=== PATIENT | male | born 1955 | race African-American/Black ===

== ENCOUNTER 2020-09-11 09:31 | Emergency (ER) | payer OTHER, MEDICARE ==
[~2020-09-11] VITALS: Ht 182.9 cm; Wt 86.0 kg
[2020-09-11 09:40] VITALS: BP 172/107
[2020-09-11] MEDS ORDERED: CYCL5TAB PO (10:15)
[2020-09-11] MEDS ORDERED: AMLO5TAB4 PO (10:15)
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
== END 2020-09-11 10:20 | disposition home or self-care (01) ==
LOC: ER 09:31
DX: S13.4XXA Sprain of ligaments of cervical spine, initial encounter (principal); I10 Essential (primary) hypertension; F17.200 Nicotine dependence, unspecified, uncomplicated; V49.49XA Driver injured in collision with other motor vehicles in traffic accident, initial encounter; Y93.89 Activity, other specified; Y92.89 Other specified places as the place of occurrence of the external cause; Y99.8 Other external cause status
CPT/HCPCS: 99283

== ENCOUNTER 2020-10-02 00:15 | Emergency (ER) | payer OTHER, MEDICARE ==
[~2020-10-02] VITALS: Ht 182.9 cm; Wt 63.4 kg
[~2020-10-02 00:15] MED LIST: AMLO5TAB4 PO; CYCL5TAB PO
[2020-10-02] MEDS ORDERED: METH-38 PO (00:40)
[2020-10-02] MEDS ORDERED: NAPR500T8 PO (00:40)
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
[2020-10-02] MEDS ORDERED: METHOCARBAMOL 750 MG TABLET PO ONE (00:45)
[2020-10-02] MEDS ORDERED: KETOROLAC 60 MG/2 ML VIAL. IM ONE (00:45)
--- NOTE | 2020-10-02 01:33 | RAD ---
EXAM: AP and lateral views right hip DATE: 10/02/2020 12:47 AM INDICATION: Reason: pain, fall / Spl. Instructions: / History: COMPARISON: No Prior FINDINGS/ IMPRESSION: 1. No evidence of acute fracture or dislocation. 2. Right hip joint degenerative changes are seen. 3. Moderate colonic stool content. Electronically signed by: Rayray Lay MD (10/02/2020 1:26 AM) KEEGAN
--- NOTE | 2020-10-02 01:33 | RAD ---
EXAM: AP, lateral and lumbosacral spot views of the lumbar spine DATE: 10/02/2020 12:47 AM INDICATION: Reason: pain, fall / Spl. Instructions: / History: COMPARISON: No Prior FINDINGS: There is approximately 20 percent height loss of the T12 vertebral body. Otherwise vertebral body hei ghts are preserved.. Disc heights are preserved. Endplate osteophytes are seen. IMPRESSION: 1. Age-indeterminate T12 compression fracture, may be acute. This can be further assessed by MRI if more accurate imaging is required such as for kyphoplasty/vertebroplasty purposes. Electronically signed by: Rayray Lay MD (10/02/2020 1:27 AM) KEEGAN
[2020-10-02 01:45] VITALS: BP 175/86
== END 2020-10-02 01:45 | disposition home or self-care (01) ==
LOC: ER 00:15
DX: M54.5 Low back pain (principal); M25.551 Pain in right hip; G89.11 Acute pain due to trauma; I10 Essential (primary) hypertension; F17.200 Nicotine dependence, unspecified, uncomplicated; V49.9XXA Car occupant (driver) (passenger) injured in unspecified traffic accident, initial encounter; Y93.89 Activity, other specified; Y92.89 Other specified places as the place of occurrence of the external cause; Y99.8 Other external cause status
CPT/HCPCS: 72100; 73502; 99284